=== PATIENT | female | born 1990 | race Two or more races ===

== ENCOUNTER 2025-07-23 16:14 | Inpatient (IN) | payer MEDICAID, OTHER ==
[~2025-07-23] VITALS: Ht 154.9 cm; Wt 65.8 kg
[2025-07-23 16:59] LABS: Nucleated Red Blood Cells % 0.0 %
[2025-07-23 17:01] LABS: Hematocrit 23.9 % (36.0-46.0); Mean Corpuscular Hemoglobin 15.2 pg (28.0-32.0); Mean Corpuscular Volume 53.0 fL (80.0-100.0)
--- NOTE | 2025-07-23 17:07 | ED.PDOC ---
History of Present Illness HPI Comments 35-year-old female presents here with a acute anemia. She states she went last week for routine checkup and had labs done. She received a phone call today stating that her hemoglobin is 6.4. Patient states that for the last several weeks but she has been feeling very short of breath tired and dizziness. She states she no longer is heavy bleeding but prior to this she was having significant menstrual cycles. She states it stopped being heavy spontaneously. She is not bleeding from any site. Not on any blood thinners. She states several years ago she became anemic after childbirth and received a transfusion at this time and trend tolerated well. Chief Complaint: Abnormal LAB's Time Seen by MD: 16:22 Reviewed Notes: Nurses Notes, Medications, Allergies Allergies: Coded Allergies: NO KNOWN ALLERGIES (Unverified , 07/23/25) Information Source: Patient Mode of Arrival: Ambulatory Severity: Moderate Timing: Days (4) Duration: Since onset Past Medical History Past Medical History (Other): Denies Surgical History (Other): None Social History Smoker: Non-Smoker Alcohol: Denies ETOH Use Drugs: Denies Drug Use Constitutional: denies: chills, diaphoresis, fatigue, fever, malaise, sweats, weakness, others EENTM: denies: blurred vision, double vision, ear bleeding, ear discharge, ear drainage, ear pain, ear ringing, eye pain, eye redness, hearing loss, mouth pain, mouth swelling, nasal discharge, nose bleeding, nose congestion, nose pain, photophobia, tearing, throat pain, throat swelling, voice changes, others Respiratory: denies: cough, hemoptysis, orthopnea, SOB at rest, shortness of breath, SOB with excertion, stridor, wheezing, others Cardiovascular: denies: chest pain, dizzy spells, diaphoresis, Dyspnea on exertion, edema, irregular heart beat, left arm pain, lightheadedness, palpitations, PND, syncope, others Gastrointestinal: denies: abdomen distended, abdominal pain, blood streaked bowels, constipated, diarrhea, dysphagia, difficulty swallowing, hematemesis, melena, nausea, poor appetite, poor fluid intake, rectal bleeding, rectal pain, vomiting, others Genitourinary: denies: abnormal vagina bleeding, burning, dyspareunia, dysuria, flank pain, frequency, hematuria, incontinence, pain, , vagina discharge, urgency, others Neurological: reports: dizziness; denies: fainting, headache, left sided numbness, left sided weakness, numbness, paresthesia, pre-existing deficit, right sided numbness, right sided weakness, seizure, speech problems, tingling, tremors, weakness, others Musculoskeletal: denies: back pain, gout, joint pain, joint swelling, muscle pain, muscle stiffness, neck pain, others Integumetry: denies: bruises, change in color, change in hair/nails, dryness, laceration, lesions, lumps, rash, wounds, others Allergic/Immunocompromised: denies: Difficulty Healing, Frequent Infections, Hives, Itching, others Hematologic/Lymphatic: denies: anemia, blood clots, easy bleeding, easy bruising, swollen glands, others Endocrine: denies: excessive hunger, excessive sweating, excessive thirst, excessive urination, flushing, intolerance to cold, intolerance to heat, unexplained weight gain, unexplained weight loss, others Psychiatric: denies: anxiety, bipolar disorder, depression, hopeless, panic disorder, schizophrenia, sleepless, suicidal, others All Other Systems: Reviewed and Negative Physical Exam General Appearance: Mild Distress, Normal HEENT: Normal ENT Inspection, Pharynx Normal, TMs Normal Neck: Full Range of Motion, Non-Tender, Normal, Normal Inspection Respiratory: Chest Non-Tender, Lungs Clear, No Accessory Muscle Use, No Respiratory Distress, Normal Breath Sounds Cardiovascular: No Edema, No JVD, No Murmur, No Gallop, Normal Peripheral Pulses, Regular Rate/Rhythm Breast Exam: Deferred Gastrointestinal: No Organomegaly, Non Tender, No Pulsatile Mass, Normal Bowel Sounds, Soft Genitalia: Deferred Pelvic: Deferred Rectal: Deferred Extremities: No calf tenderness, Normal capillary refill, Normal inspection, No rmal range of motion, Non-tender, No pedal edema Musculoskeletal : Apperance: Normal Neurologic: Alert, lock and dam repairer II-XII nml as Tested, No Motor Deficits, Normal Affect, Normal Mood, No Sensory Deficits Cerebellar Function: Normal Reflexes: Normal Skin: Dry, Pallor, Warm Lymphatic: No Adenopathy Was a procedure done? Was a procedure done?: No Differential Dx Considerations may include: Acute hemorrhage acute anemia, shortness of breath secondary to this X-Ray, Labs, Meds, VS Vital Signs Date Time Temp Pulse Resp B/P (MAP) Pulse Ox O2 Delivery O2 Flow Rate FiO2 07/23/25 16:16 98.1 81 16 141/93 100 98.1 Lab Test 07/23/25 16:37 Range/Units White Blood Count 8.0 4.4-10.8 10^3/uL Red Blood Count 4.51 4.0-5.20 10^6/uL Hemoglobin 6.8 *L 12.2-16.2 g/dL Hematocrit 23.9 L 36.0-46.0 % Mean Corpuscular Volume 53.0 L 80.0-100.0 fL Mean Corpuscular Hemoglobin 15.2 L 28.0-32.0 pg Mean Corpuscular Hemoglobin Concent 28.6 L 32.0-36.0 g/dL Red Cell Distribution Width 19.1 H 11.8-14.3 % Platelet Count 653 H 140-450 10^3/uL Mean Platelet Volume 8.3 6.9-10.8 fL Neutrophils (%) (Auto) 63.3 37.0-80.0 % Lymphocytes (%) (Auto) 29.5 10.0-50.0 % Monocytes (%) (Auto) 5.7 0.0-12.0 % Eosinophils (%) (Auto) 0.5 0.0-7.0 % Basophils (%) (Auto) 1.0 0.0-2.0 % Neutrophils # (Auto) 5.1 1.6-8.6 10 ^3/uL Lymphocytes # (Auto) 2.4 0.4-5.4 10 ^3/uL Monocytes # (Auto) 0.5 0-1.3 10 ^3/uL Eosinophils # (Auto) 0 0-0.8 10 ^3/uL Basophils # (Auto) 0.1 0-0.2 10 ^3/uL Nucleated Red Blood Cells 0.0 % Sodium Level 140 136-145 mmol/L Potassium Level 3.5 3.5-5.1 mmol/L Chloride Level 106 98-107 mmol/L Carbon Dioxide Level 24 20-31 mmol/L Anion Gap 10 5-15 Blood Urea Nitrogen 14 9-23 mg/dL Creatinine 0.63 0.550-1.02 mg/dL Glomerular Filtration Rate Calc 117 >90 mL/min BUN/Creatinine Ratio 22.2 H 10.0-20.0 Serum Glucose 102 74-106 mg/dL Calcium Level 9.4 8.7-10.4 mg/dL 35-year-old female presents here with feeling tired weak and dizzy for the last several weeks. She was found to be hemoglobin is 6.8 here in the ER. She is currently on iron tablets however continues to feel this way and feels tired will take care of her children. At this time she has agreed to transfusion. She has agreed to admission. I have written for 1 unit PRBC transfusion. CBC also demonstrates thrombocytosis of 653. BMP unremarkable. At this time hospitalist team has been contacted for admission. Time of 1ST Reevaluation: 17:16 Reevaluation 1ST: Unchanged Patient Education/Counseling: Diagnosis, Treatment, Prognosis Family Education/Counseling: No Family Present SEPSIS Sepsis Screen Date sepsis recognized/suspect: Jul 23, 2025 Time Sepsis recognized/suspect: 1615 Recent Procedure: No On Antibiotic Therapy: No Respiratory Rate >20: No Heart Rate >90: No Temp<36 C (96.8 F) or >38.3 C: No SBP <90 or MAP <65 mmHG: No New Acute Mental Status Change: No Is the patient on CPAP, BIPAP,: No Physician Orders Type And Screen (07/23/25 16:23) Test, Urine (07/23/25 16:23) Vital Signs Date Time Temp Pulse Resp B/P (MAP) Pulse Ox O2 Delivery O2 Flow Rate FiO2 07/23/25 16:16 98.1 81 16 141/93 100 98.1 Laboratory Tests Test 07/23/25 16:37 White Blood Count 8.0 10^3/uL (4.4-10.8) Departure 1 Departure Time of Disposition: 17:39 Impression: Primary Impression: Severe anemia Additional Impression: Thrombocytosis Disposition: 09 ADMITTED INPATIENT Condition: Guarded Critical Care Note Critical Care Time?: Yes (35 min-critical care time only) Stability Stability form required: No Heart Score Heart Score: Heart Score Response (Comments) Value History N/A 0 EKG N/A 0 Age N/A 0 Risk Factors N/A 0 Troponin N/A 0 Total 0 I personally scribed for FREDDIE DEWITT MD ([email or web address]) on 07/23/25 at 17:07. Electronically submitted by Dahlia VenturaFORMERLY [facility] I personally scribed for FREDDIE DEWITT MD ([email or web address]) on 07/23/25 at 17:16. Electronically submitted by Dahlia Sánchez ([facility]). FREDDIE DEWITT MD Jul 23, 2025 17:07
[2025-07-23 17:08] LABS: Hemoglobin 6.8 g/dL (12.2-16.2)
[2025-07-23 17:11] LABS: Chloride 106 mmol/L (98-107); Sodium 140 mmol/L (136-145)
[2025-07-23 17:12] LABS: Anion Gap 10 (5-15); Calcium 9.4 mg/dL (8.7-10.4); Carbon Dioxide 24 mmol/L (20-31)
[2025-07-23 17:17] LABS: BUN/Creatinine Ratio 22.2 (10.0-20.0); Blood Urea Nitrogen 14 mg/dL (9-23); Glucose 102 mg/dL (74-106)
[2025-07-23 17:18] LABS: Potassium 3.5 mmol/L (3.5-5.1)
[2025-07-23 18:00] VITALS: PULSE 73; RESP 14; O2SAT 99
[2025-07-23 19:40] VITALS: O2SAT 99
[2025-07-23] MEDS ORDERED: DOCUSATE SOD 100 MG CAP PO PRN (21:45)
[2025-07-23] MEDS ORDERED: ACETAMINOPHEN 325 MG TAB PO PRN (21:45)
[2025-07-23] MEDS ORDERED: HYDROcodone-ACET 5/325MG TAB PO PRN (21:45)
[2025-07-23] MEDS ORDERED: ONDANSETRON HCL 4 MG/2 ML VIAL IV PRN (21:45)
--- NOTE | 2025-07-23 21:53 | DVHHP2 ---
History of Present Illness Reason for Visit: Severe anemia History of Present Illness The patient is a 35-year-old female who denies past medical history presented to [facility] ED with acute anemia and dizziness. Patient reports that she went for a routine checkup and had lab drawn last week. Patient receive a phone call today stating that her hemoglobin is 6.4 and she is required to go to the emergency department for further evaluation and possible blood transfusion. Patient states that she experienced similar symptoms 5 years ago after having a baby and receive blood transfusion without complication. She reports having significant heavy menstrual cycles prior to this, but not bleeding from any site at this time. Patient was seen and evaluated in the ED, laboratory data shows WBC 8.0, hemoglobin 6.8, hematocrit 23.9, platelets 653, sodium 140, potassium 3.5, BUN 14, creatinine 0.63, GFR 117, glucose 102, calcium 9.4, blood pressure 120/70, heart rate 72, temperature 98.6 F, O2 saturation 99% on room air. Please see medication orders section in the computer. On my assessment, patient denied chest pain, no dizziness at this time, diaphoresis, shortness of breath, no diarrhea, nausea, vomiting, fever, no chills. Patient was admitted for further evaluation and medical management. Past Medical History Denies past medical history Past Surgical History Denies all surgeries Family History Reviewed, noncontributory to the management of this case. Past Social History The patient lives at home, denies smoking, alcohol or illicit drugs abuse. Review of Systems Constitutional: Yes: Weakness; No: Fever, Chills, Sweats, Malaise, Other Eyes: No: Pain, Vision change, Conjunctivae inflammation, Eyelid inflammation, Other, Redness ENT: No: Ear pain, Ear discharge, Nose pain, Nose discharge, Nose congestion, Mouth pain, Mouth swelling, Throat pain, Throat swelling, Other Respiratory: No: Cough, Dry, Shortness of breath, SOB with excertion, Wheezing, Hemoptysis, Pleuritic Pain, Sputum, Wheezing, Other Cardiovascular: No: Chest Pain, Palpitations, Orthopnea, Paroxysmal Noc. Dyspnea, Edema, Lt Headedness, Other Gastrointestinal: No: Nausea, Vomiting, Abdominal Pain, Diarrhea, Constipation, Melena, Hematochezia, Other Genitourinary: No Dysuria, No Frequency, No Incontinence, No Hematuria, No Retention, No Other Musculoskeletal: No: other, neck pain, shoulder pain, arm pain, back pain, hand pain, leg pain, foot pain Skin: Jaundice; No: Rash, Lesions, Bruising, Other Neurological: Other (Dizziness); No: Weakness, Numbness, Incoordination, Change in speech, Confusion, Seizures Allergies: Coded Allergies: NO KNOWN ALLERGIES (Unverified , 07/23/25) Medications Current Medications Medications Dose Ordered Sig/Rhiannon Route Start Time Stop Time Status Last Admin Dose Admin Sodium Chloride 10 ml Q8HR IV 07/23/25 22:00 UNV Acetaminophen/ Hydrocodone Bitart 1 tab Q4HP PRN PO 07/23/25 21:45 UNV Ondansetron HCl 4 mg Q4HP PRN IV 07/23/25 21:45 UNV Docusate Sodium 100 mg BIDPRN PRN PO 07/23/25 21:45 UNV Enoxaparin Sodium 40 mg DAILY SC 07/24/25 10:00 UNV Acetaminophen 650 mg Q6HP PRN PO 07/23/25 21:45 UNV Exam Vital Signs Vital Signs Date Time Temp Pulse Resp B/P (MAP) Pulse Ox O2 Delivery O2 Flow Rate FiO2 07/23/25 18:00 98.5 73 14 120/70 (87) 99 98.5 07/23/25 18:00 Room Air* 0 21 General Appearance: Alert, Oriented X3, Cooperative, No acute distress HEENT: Atraumatic, PERRLA, EOMI, Mucous membr. moist/pink Respiratory: Clear to auscultation, Normal air movement Cardiovascular: Regular rate, Normal S1, Normal S2, No murmurs Abdominal: Normal bowel sounds, Soft, No tenderness, No hepatospenomegaly, No masses Extremities: No clubbing, No cyanosis, No edema, Normal pulses, No tenderness/swelling Skin: No rashes, No significant lesion Neuro: Normal speech, Normal tone, Sensation intact, Cranial nerves 3-12 NL, Reflexes 2+, Other (Generalized weakness) Psych/Mental Status: Mental status NL, Mood NL Labs/Xrays Labs Test 07/23/25 19:00 07/23/25 16:37 Range/Units Urine Test Negative Negative White Blood Count 8.0 4.4-10.8 10^3/uL Red Blood Count 4.51 4.0-5.20 10^6/uL Hemoglobin 6.8 *L 12.2-16.2 g/dL Hematocrit 23.9 L 36.0-46.0 % Mean Corpuscular Volume 53.0 L 80.0-100.0 fL Mean Corpuscular Hemoglobin 15.2 L 28.0-32.0 pg Mean Corpuscular Hemoglobin Concent 28.6 L 32.0-36.0 g/dL Red Cell Distribution Width 19.1 H 11.8-14.3 % Platelet Count 653 H 140-450 10^3/uL Mean Platelet Volume 8.3 6.9-10.8 fL Neutrophils (%) (Auto) 63.3 37.0-80.0 % Lymphocytes (%) (Auto) 29.5 10.0-50.0 % Monocytes (%) (Auto) 5.7 0.0-12.0 % Eosinophils (%) (Auto) 0.5 0.0-7.0 % Basophils (%) (Auto) 1.0 0.0-2.0 % Neutrophils # (Auto) 5.1 1.6-8.6 10 ^3/uL Lymphocytes # (Auto) 2.4 0.4-5.4 10 ^3/uL Monocytes # (Auto) 0.5 0-1.3 10 ^3/uL Eosinophils # (Auto) 0 0-0.8 10 ^3/uL Basophils # (Auto) 0.1 0-0.2 10 ^3/uL Nucleated Red Blood Cells 0.0 % Sodium Level 140 136-145 mmol/L Potassium Level 3.5 3.5-5.1 mmol/L Chloride Level 106 98-107 mmol/L Carbon Dioxide Level 24 20-31 mmol/L Anion Gap 10 5-15 Blood Urea Nitrogen 14 9-23 mg/dL Creatinine 0.63 0.550-1.02 mg/dL Glomerular Filtration Rate Calc 117 >90 mL/min BUN/Creatinine Ratio 22.2 H 10.0-20.0 Serum Glucose 102 74-106 mg/dL Calcium Level 9.4 8.7-10.4 mg/dL SEPSIS Sepsis Screen Date sepsis recognized/suspect: Jul 23, 2025 Time Sepsis recognized/suspect: 1800 Recent Procedure: No On Antibiotic Therapy: No Respiratory Rate >20: No Heart Rate >90: No Temp<36 C (96.8 F) or >38.3 C: No SBP <90 or MAP <65 mmHG: No New Acute Mental Status Change: No Is the patient on CPAP, BIPAP,: No Physician Orders Type And Screen (07/23/25 16:23) Obtain Consent For: (07/23/25 17:38) Vital Signs .PER UNIT PROTOCOL (07/23/25 17:38) Administer Blood Products UD (07/23/25 17:38) Obtain Consent For Anesthesia (07/23/25 17:38) Antibody Identification (07/23/25 16:37) Antigen Identification (07/23/25 16:37) Allergies (07/23/25 21:37) Code Status (07/23/25 21:37) Sodium Chloride Lock (Saline Lock Ns) (07/23/25 22:00) Oxygen Per Hour (07/23/25 21:37) Hydrocodone-Acet 5/325mg Tab ([place] 5/32 (07/23/25 21:45) Ondansetron Hcl (Zofran) (07/23/25 21:45) Docusate Sodium Capsule (Colace Capsule) (07/23/25 21:45) Enoxaparin Sodium (Lovenox) (07/24/25 10:00) Fall Risk Precautions In Place QSHIFT (07/23/25 21:37) Complete Blood Count (07/24/25 04:00) Comprehensive Metabolic Panel (07/24/25 04:00) Cardiac Diet-2gna,Lofat,Lochol (07/24/25 Breakfast) Condition: Serious (07/23/25 21:37) Acetaminophen Tablet (Tylenol Tablet) (07/23/25 21:45) Maintain Bed Rest (07/23/25 21:37) Sequential Compression Device (07/23/25 ) Admit (07/23/25 21:52) Nitroglycerin Sublingual (Ntrostat Subli (07/23/25 22:00) Morphine Sulfate Injection (07/23/25 22:00) Stat Ekg For Chest Pain (07/23/25 21:52) Notify Md Of Changes From Base (07/23/25 21:52) Contract Runner For 24 Hours (07/23/25 21:52) Emergency Dysrhythmia Protocol (07/23/25 21:52) Rhythm Strips Once Every Shift (07/23/25 21:52) Oxygen By Nasal Cannula (07/23/25 21:52) Vital Signs Date Time Temp Pulse Resp B/P (MAP) Pulse Ox O2 Delivery O2 Flow Rate FiO2 07/23/25 18:00 98.5 73 14 120/70 (87) 99 98.5 07/23/25 18:00 73 14 99 Room Air* 0 21 07/23/25 16:16 98.1 81 16 141/93 100 98.1 Laboratory Tests Test 07/23/25 16:37 White Blood Count 8.0 10^3/uL (4.4-10.8) Assessment/Plan Assessment/Plan Severe anemia Thrombocytosis Generalized weakness Plan 1. Admit to telemetry unit 2. Breathing treatment 3. Pain control management 4. Management of fluids and electrolytes 5. Consultation for hospitalist 6. Diagnostic tests chest x-ray 7. DVT prophylaxis patch on SCDs 8. Repeat labs CBC, CMP in a.m. 9. Continue with current medical management 10. Treatment plan discussed with patient and RN. Patient verbalized understanding. Plan discussed with: Patient, Other (RN) My Orders Orders - CLAIRE FLOOD DNP Procedure Category Date Status Time Allergies LUIS 07/23/25 In Process 21:37 Code Status CODE 07/23/25 Transmitted 21:37 Sodium Chloride Lock PHA 07/23/25 Logged (Saline Lock Ns) 22:00 Oxygen Per Hour RT 07/23/25 Transmitted 21:37 Hydrocodone-Acet PHA 07/23/25 Logged 5/325mg Tab ([place] 21:45 Ondansetron Hcl PHA 07/23/25 Logged (Zofran) 21:45 Docusate Sodium PHA 07/23/25 Logged Capsule (Colace 21:45 Enoxaparin Sodium PHA 07/24/25 Logged (Lovenox) 10:00 Fall Risk Precautions LUIS 07/23/[address] 21:37 Complete Blood Count LAB 07/24/25 Verified 04:00 Comprehensive LAB 07/24/25 Verified Metabolic Panel 04:00 Cardiac DIET 07/24/25 Transmitted Diet-2gna,Lofat,Lochol Breakfast Condition: Serious LUIS 07/23/25 In Process 21:37 Acetaminophen Tablet PHA 07/23/25 Logged (Tylenol Tablet) 21:45 Maintain Bed Rest LUIS 07/23/25 In Process 21:37 Sequential [facility] 07/23/25 In Process Compression Device Admit ADMIT 07/23/25 Verified 21:52 Nitroglycerin [facility] 07/23/25 Verified Sublingual (Ntrostat 22:00 Morphine Sulfate [facility] 07/23/25 Verified Injection 22:00 Stat Ekg For Chest [facility] 07/23/25 Verified Pain 21:52 Notify Md Of Changes [facility] 07/23/25 Verified From Base 21:52 Contract Runner For [facility] 07/23/25 Verified 24 Hours 21:52 Emergency Dysrhythmia [facility] 07/23/25 Verified Protocol 21:52 Rhythm Strips Once [facility] 07/23/25 Verified Every Shift 21:52 Oxygen By Nasal 07/23/25 Verified Cannula 21:52 Problem List: (1) Severe anemia (2) Thrombocytosis (3) Generalized weakness Date of Service: Jul 23, 2025 Billing Provider: CLAIRE FLOOD DNP Common Visit Codes: [id number] INP/OBS CARE (HIGH) CLAIRE FLOOD DNP Jul 23, 2025 21:53
[2025-07-23] MEDS ORDERED: MORPHINE SULFATE INJ 2 MG/ml SYRG IV PRN (22:00)
[2025-07-23] MEDS ORDERED: NITROGLYCERIN 0.4 MG SL TAB SL PRN (22:00)
[2025-07-23] MEDS: SODIUM CHLOR 0.9% PF (SALINE LOCK) 10ML VIAL/SYR IV SCH (22:08)
[2025-07-23 23:35] VITALS: BP 113/62; PULSE 70; RESP 20; TEMP 98.5
[2025-07-23 23:55] VITALS: BP 120/68; PULSE 67; RESP 21; TEMP 98.7
[2025-07-24] VITALS (8 sets, daily range): BP systolic 109–128; BP diastolic 61–80; PULSE 66–79; RESP 16–20; TEMP 98.3–98.7; O2SAT 98–100
[2025-07-24 03:32] LABS: Hemoglobin 7.5 g/dL (12.2-16.2)
[2025-07-24 03:35] LABS: Hematocrit 25.3 % (36.0-46.0); Mean Corpuscular Hemoglobin 17.3 pg (28.0-32.0); Mean Corpuscular Volume 58.1 fL (80.0-100.0); Nucleated Red Blood Cells % 0.2 %
[2025-07-24 03:44] LABS: Albumin 3.9 g/dL (3.2-4.8); Alkaline Phosphatase 68 U/L (46-116); Anion Gap 10 (5-15); BUN/Creatinine Ratio 22.2 (10.0-20.0); Bilirubin, Total 0.9 mg/dL (0.2-1.0); Blood Urea Nitrogen 12 mg/dL (9-23); Carbon Dioxide 24 mmol/L (20-31); Glucose 100 mg/dL (74-106); Potassium 3.8 mmol/L (3.5-5.1); Sodium 142 mmol/L (136-145); Total Protein 6.6 g/dL (5.7-8.2)
[2025-07-24 03:45] LABS: Alanine Aminotransferase < 9 U/L (7-40); Calcium 8.7 mg/dL (8.7-10.4); Chloride 108 mmol/L (98-107)
[2025-07-24] MEDS: ENOXAPARIN SOD 40 MG/0.4 ML SYRINGE SC SCH (10:00)
[2025-07-24] MEDS ORDERED: FERR1TAB8 PO (11:21)
--- NOTE | 2025-07-24 12:45 | DVHPN2 ---
Reviewed: H&P Changes from previous H/P or p: No Changes General: Per HPI Eyes: No Pain, No Vision change, No Conjunctivae inflammation, No Eyelid inflammation, No Other, No Redness ENT: No Ear pain, No Ear discharge, No Nose pain, No Nose discharge, No Nose congestion, No Mouth pain, No Mouth swelling, No Throat pain, No Throat swelling, No Other Cardiovascular: No Chest Pain, No Palpitations, No Orthopnea, No Paroxysmal Noc. Dyspnea, No Edema, No Lt Headedness, No Other Respiratory: No Cough, No Dry, No Shortness of breath, No SOB with excertion, No Wheezing, No Hemoptysis, No Pleuritic Pain, No Sputum, No Other Gastrointestinal: No Nausea, No Vomiting, No Abdominal Pain, No Diarrhea, No Constipation, No Melena, No Hematochezia, No Other Genitourinary: No Dysuria, No Frequency, No Incontinence, No Hematuria, No Retention, No Other Musculoskeletal: No other, No neck pain, No shoulder pain, No arm pain, No back pain, No hand pain, No leg pain, No foot pain Skin: No Rash, No Lesions; Jaundice; No Bruising, No Other Objective Vitals Vital Signs Date Time Temp Pulse Resp B/P (MAP) Pulse Ox O2 Delivery O2 Flow Rate FiO2 07/24/25 09:00 98.3 79 18 128/80 (96) 100 98.3 07/23/25 19:40 Room Air* 0 21 Intake/Output Intake and Output 07/24/25 07:00 Intake Total 600 ml Output Total 0 ml Balance 600 ml Intake Blood Product 600 ml Output Urine Total 0 ml Exam GEN: Healthy appearing, well-developed, NAD. HEENT: NC/AT; MMM. Conjunctival pallor CV: RRR, no m/r/g. LUNGS: CTAB, no w/r/c. ABD: Soft, NT/ND, NBS, no masses or organomegaly. EXT: skin Warm, well perfused. no rashes. No clubbing, cyanosis, or edema. NEURO: Ambulating with no limitations. No focal deficits. Medications Current Medications Medications Dose Ordered Sig/Rhiannon Route Start Time Stop Time Status Last Admin Dose Admin Sodium Chloride 10 ml Q8HR IV 07/23/25 22:00 07/24/25 05:41 10 ML Acetaminophen/ Hydrocodone Bitart 1 tab Q4HP PRN PO 07/23/25 21:45 Ondansetron HCl 4 mg Q4HP PRN IV 07/23/25 21:45 Docusate Sodium 100 mg BIDPRN PRN PO 07/23/25 21:45 Enoxaparin Sodium 40 mg DAILY SC 07/24/25 10:00 Acetaminophen 650 mg Q6HP PRN PO 07/23/25 21:45 Nitroglycerin 0.4 mg Q5MINP PRN SL 07/23/25 22:00 Morphine Sulfate 2 mg Q30M PRN IV 07/23/25 22:00 Laboratory Results Laboratory Tests 07/24/25 03:02 Chemistry Test 07/23/25 16:37 07/24/25 03:02 Calcium Level 9.4 mg/dL (8.7-10.4) 8.7 mg/dL (8.7-10.4) Albumin 3.9 g/dL (3.2-4.8) Total Protein 6.6 g/dL (5.7-8.2) LFT Test 07/24/25 03:02 Alanine Aminotransferase (ALT) < 9 U/L (7-40) Alkaline Phosphatase 68 U/L (46-116) Aspartate Amino Transferase (AST) 15 U/L (13-40) Total Bilirubin 0.9 mg/dL (0.2-1.0) Urinalysis Test 07/23/25 19:00 Urine Test Negative (Negative) Labs and/or images reviewed: Labs reviewed by me, Image(s) reviewed by me Assessment/Plan Assessment/Plan 35-year-old female who denies past medical history presented to [facility] ED with acute anemia and dizziness. Patient reports that she went for a routine checkup and had lab drawn last week. Patient receive a phone call today stating that her hemoglobin is 6.4 and she is required to go to the emergency department for further evaluation and possible blood transfusion. Patient states that she experienced similar symptoms 5 years ago after having a baby and receive blood transfusion without complication. She reports having significant heavy menstrual cycles prior to this, but not bleeding from any site at this time. 07/24: Patient presenting with severe dizziness, recently had until cycle which was heavier than normal, patient does suffer with history of menorrhagia. Patient had routine blood draw and was told her blood levels were low prior to presentation. On initial eval patient is anemic hemoglobin 6.8, patient had conjunctival pallor looks pale. 1 unit blood is given in ER. Patient is O positive. We will get pelvic ultrasound and consult Gynecology. Plan discussed with: Patient My Orders Orders - GALLO BURNETTE MD Procedure Category Date Status Time Pelvic US 07/24/25 Transmitted 12:41 * Spool Salvager Consultation CONS 07/24/25 Transmitted 12:41 Stool Occult Blood LAB 07/24/25 Verified 12:42 Date of Service: Jul 24, 2025 Billing Provider: GALLO BURNETTE MD Common Visit Codes: [id number] INP/OBS CARE(HIGH) GALLO BURNETTE MD Jul 24, 2025 12:45
--- NOTE | 2025-07-24 15:03 | DVH ---
INDICATION: Menorrhagia TECHNIQUE: Multiple real-time grayscale transabdominal transvaginal sonographic images along with color and duplex Doppler of the uterus and ovaries were obtained. COMPARISON: None FINDINGS: The uterus measures 7.79 x 3.35 x 4.81 cm. Uterine volume is 65.71 mL The endometrial stripe measures 0.48 cm. There is a 0.27 cm echogenic focus in the endometrial canal. The right ovary measures 2.92 by 1.87 x 2.32 cm. Right ovary volume is 6.64 mL The left ovary measures 2.89 x 2.07 x 2.35 cm. Volume of the left ovary is 7.37 mL. Subsequent color and duplex Doppler interrogation of the ovaries demonstrated symmetric vascular flow to both ovaries, though this does not exclude the possibility of torsion due to the dual blood supply. IMPRESSION: 1. Grossly unremarkable pelvic ultrasound. 2. Multiple follicles in the ovaries. 3. Small echogenic focus in the endometrial canal may represent calcification.
[2025-07-24] MEDS: FERROUS SULFATE 325mg EC TAB PO SCH (15:07)
[2025-07-24] MEDS: FOLIC ACID 1 MG TAB PO SCH (15:08)
[2025-07-25 01:00] VITALS: BP 109/68; PULSE 74; RESP 18; TEMP 98.1; O2SAT 98
[2025-07-25 05:00] VITALS: BP 114/70; PULSE 61; RESP 16; TEMP 97.8; O2SAT 98
[2025-07-25 06:29] LABS: Hemoglobin 8.2 g/dL (12.2-16.2); Nucleated Red Blood Cells % 0.1 %
[2025-07-25 06:31] LABS: Hematocrit 27.2 % (36.0-46.0); Mean Corpuscular Hemoglobin 17.3 pg (28.0-32.0); Mean Corpuscular Volume 57.2 fL (80.0-100.0)
--- NOTE | 2025-07-25 07:58 | DVHINCON2 ---
Date of service: Jul 25, 2025 Referring Physician HOSPITALIST Reason for Consultation MENORRHAGIA AND ANEMIA History of Present Illness PT IS female admitted for severe anemia and menorrhagia.pt states her last pap was five yrs ago. her lmp was 11-3 she states she doesnt bleed heavy .pelvic sono is essentially normal.she has no desire for fertility Past Medical History none Past Surgical History none Family History na Social History 3 Patient Family History: Patient reports no known family medical history. Allergies: Coded Allergies: NO KNOWN ALLERGIES (Unverified , 07/23/25) Home Meds Reported Medications Ferrous Sulfate (Gnp Iron) 325 Mg Tab, 1 TAB PO TID 07/24/25 Current Medications Current Medications Medications (Trade) Dose Ordered Sig/Rhiannon Route PRN Reason Start Time Stop Time Status Last Admin Enoxaparin Sodium (Lovenox) 40 mg DAILY SC 07/24/25 10:00 Folic Acid 1 mg DAILY PO 07/24/25 14:15 07/24/25 15:08 Ferrous Sulfate 325 mg EOD PO 07/24/25 14:15 07/24/25 15:07 Review of Systems Constitutional: no fever, chill, weight loss HEENT: no eye pain, no hearing loss, no oral lesion, no scleral icterus Heart: no chest pain, no chest pressure Lung: no cough, no dyspnea with exertion Abdomen: no nause,vomiting or diarrhea : no pain with urination, normal appearing urinepos for bleeding Musculoskeletal: no joint pain, no muscle pain Neurological: no seizure, no loss of sensation, no weakness in extremities Pysch: no depression, no anxiety Derm: no rash, no jaundice Vital Signs Vital Signs Date Time Temp Pulse Resp B/P (MAP) Pulse Ox O2 Delivery O2 Flow Rate FiO2 07/25/25 05:00 97.8 61 16 114/70 (85) 98 97.8 07/24/25 20:00 Room Air* 0 21 Physical Exam SKIN: [pale] HEENT: [pale conjuctivae] NECK: [nl] CARDIAC: [rrr] PULMONARY: [cta] ABDOMEN: [soft,nt ] breasts -symmetrical nomasses pelvic-ext gent nl,no bleeding noted,cx nl ,uterus nl size ext-no cce Labs/Diagnostic Data Labs Test 07/25/25 05:54 07/24/25 17:30 07/24/25 03:02 07/23/25 19:00 Range/Units White Blood Count 7.5 4.4-10.8 10^3/uL Red Blood Count 4.76 4.0-5.20 10^6/uL Hemoglobin 8.2 L 12.2-16.2 g/dL Hematocrit 27.2 L 36.0-46.0 % Mean Corpuscular Volume 57.2 L 80.0-100.0 fL Mean Corpuscular Hemoglobin 17.3 L 28.0-32.0 pg Mean Corpuscular Hemoglobin Concent 30.2 L 32.0-36.0 g/dL Red Cell Distribution Width 21.0 H 11.8-14.3 % Platelet Count 540 H 140-450 10^3/uL Mean Platelet Volume 8.5 6.9-10.8 fL Neutrophils (%) (Auto) 62.7 37.0-80.0 % Lymphocytes (%) (Auto) 27.4 10.0-50.0 % Monocytes (%) (Auto) 7.9 0.0-12.0 % Eosinophils (%) (Auto) 1.1 0.0-7.0 % Basophils (%) (Auto) 0.9 0.0-2.0 % Neutrophils # (Auto) 4.7 1.6-8.6 10 ^3/uL Lymphocytes # (Auto) 2.1 0.4-5.4 10 ^3/uL Monocytes # (Auto) 0.6 0-1.3 10 ^3/uL Eosinophils # (Auto) 0.1 0-0.8 10 ^3/uL Basophils # (Auto) 0.1 0-0.2 10 ^3/uL Nucleated Red Blood Cells 0.1 % Stool Occult Blood Negative Negative Stool Occult Blood Sample #3 Negative Sodium Level 142 136-145 mmol/L Potassium Level 3.8 3.5-5.1 mmol/L Chloride Level 108 H 98-107 mmol/L Carbon Dioxide Level 24 20-31 mmol/L Anion Gap 10 5-15 Blood Urea Nitrogen 12 9-23 mg/dL Creatinine 0.54 L 0.550-1.02 mg/dL Glomerular Filtration Rate Calc 122 >90 mL/min BUN/Creatinine Ratio 22.2 H 10.0-20.0 Serum Glucose 100 74-106 mg/dL Calcium Level 8.7 8.7-10.4 mg/dL Total Bilirubin 0.9 0.2-1.0 mg/dL Aspartate Amino Transferase (AST) 15 13-40 U/L Alanine Aminotransferase (ALT) < 9 7-40 U/L Alkaline Phosphatase 68 46-116 U/L Total Protein 6.6 5.7-8.2 g/dL Albumin 3.9 3.2-4.8 g/dL Urine Test Negative Negative Primary Diagnosis menorrhagia with anemia Plan pt is advised to see me after dc ,she will need pap smear,endometrial biopsy and will benefit from endometrial ablation.recommend dc on iron supplementation. will sign off thank you very much for this consultation Plan discussed with: Patient Visit Coding OBGYN Date of Service: Jul 25, 2025 Billing Provider: TOREY AGUIRRE DO OTOLOGIST Common Visit Codes: [id number] INP/OBS CARE (HIGH) OTOLOGIST Consultation Codes: 17909-Z/U INPATIENT CONSULT (HIGH) TOREY AGUIRRE DO Jul 25, 2025 07:58
[2025-07-25 08:00] VITALS: PULSE 69
[2025-07-25 08:10] VITALS: PULSE 68; RESP 18; O2SAT 100
[2025-07-25 08:51] LABS: Anisocytosis Slight
[2025-07-25 09:00] VITALS: BP 111/74; PULSE 68; RESP 18; TEMP 97.4; O2SAT 100
[2025-07-25 13:00] VITALS: BP 121/82; PULSE 82; RESP 20; TEMP 97.9; O2SAT 100
--- NOTE | 2025-07-25 15:16 | DVHDS2 ---
Discharge Summary Date of Admission Jul 23, 2025 at 21:52 Date of Discharge: Jul 25, 2025 Labs/Diagnostic Data: Laboratory Results Test 07/25/25 05:54 07/24/25 17:30 07/24/25 03:02 07/23/25 19:00 White Blood Count 7.5 10^3/uL (4.4-10.8) Red Blood Count 4.76 10^6/uL (4.0-5.20) Hemoglobin 8.2 g/dL (12.2-16.2) Hematocrit 27.2 % (36.0-46.0) Mean Corpuscular Volume 57.2 fL (80.0-100.0) Mean Corpuscular Hemoglobin 17.3 pg (28.0-32.0) Mean Corpuscular Hemoglobin Concent 30.2 g/dL (32.0-36.0) Red Cell Distribution Width 21.0 % (11.8-14.3) Platelet Count 540 10^3/uL (140-450) Mean Platelet Volume 8.5 fL (6.9-10.8) Neutrophils (%) (Auto) 62.7 % (37.0-80.0) Lymphocytes (%) (Auto) 27.4 % (10.0-50.0) Monocytes (%) (Auto) 7.9 % (0.0-12.0) Eosinophils (%) (Auto) 1.1 % (0.0-7.0) Basophils (%) (Auto) 0.9 % (0.0-2.0) Neutrophils # (Auto) 4.7 10 ^3/uL (1.6-8.6) Lymphocytes # (Auto) 2.1 10 ^3/uL (0.4-5.4) Monocytes # (Auto) 0.6 10 ^3/uL (0-1.3) Eosinophils # (Auto) 0.1 10 ^3/uL (0-0.8) Basophils # (Auto) 0.1 10 ^3/uL (0-0.2) Nucleated Red Blood Cells 0.1 % Platelet Estimate Increased Hypochromasia (manual) Slight Anisocytosis (manual) Slight Microcytosis Slight Stool Occult Blood Negative (Negative) Stool Occult Blood Sample #3 (Negative) Sodium Level 142 mmol/L (136-145) Potassium Level 3.8 mmol/L (3.5-5.1) Chloride Level 108 mmol/L (98-107) Carbon Dioxide Level 24 mmol/L (20-31) Anion Gap 10 (5-15) Blood Urea Nitrogen 12 mg/dL (9-23) Creatinine 0.54 mg/dL (0.550-1.02) Glomerular Filtration Rate Calc 122 mL/min (>90) BUN/Creatinine Ratio 22.2 (10.0-20.0) Serum Glucose 100 mg/dL (74-106) Calcium Level 8.7 mg/dL (8.7-10.4) Total Bilirubin 0.9 mg/dL (0.2-1.0) Aspartate Amino Transferase (AST) 15 U/L (13-40) Alanine Aminotransferase (ALT) < 9 U/L (7-40) Alkaline Phosphatase 68 U/L (46-116) Total Protein 6.6 g/dL (5.7-8.2) Albumin 3.9 g/dL (3.2-4.8) Urine Test Negative (Negative) Other Laboratory Tests 07/25/25 05:54 07/24/25 03:02 Brief Hx & Hospital Course: 35-year-old female who denies past medical history presented to [facility] ED with acute anemia and dizziness. Patient reports that she went for a routine checkup and had lab drawn last week. Patient receive a phone call today stating that her hemoglobin is 6.4 and she is required to go to the emergency department for further evaluation and possible blood transfusion. Patient states that she experienced similar symptoms 5 years ago after having a baby and receive blood transfusion without complication. She reports having significant heavy menstrual cycles prior to this, but not bleeding from any site at this time. 07/24: Patient presenting with severe dizziness, recently had until cycle which was heavier than normal, patient does suffer with history of menorrhagia. Patient had routine blood draw and was told her blood levels were low prior to presentation. On initial eval patient is anemic hemoglobin 6.8, patient had conjunctival pallor looks pale. 1 unit blood is given in ER. Patient is O positive. We will get pelvic ultrasound and consult Gynecology. 07/25: Stool occult blood negative, no significant findings on pelvic ultrasound, gynecology has evaluated the patient and wants to do outpatient follow up. Hemoglobin stable. Stable for discharge as per plan below. Continue folic acid 1 mg daily for next 30 days, continue ferrous sulfate 325 every other day, close follow up with Gynecology, follow up 1-2 weeks with PCP to review discharge. Diagnosis: Acute blood loss anemia , requiring transfusion Severe anemia , microcytic Menorrhagia Ruled out GI bleed Thrombocytosis, likely reactive to severe anemia. Intravascular volume depletion plan: - folic acid 1 mg daily for next 30 days, -continue ferrous sulfate 325 every other day, -close follow up with Gynecology, -follow up 1-2 weeks with PCP to review discharge. Condition at Discharge: Fair Final Diagnosis/Problems List Acute blood loss anemia , requiring transfusion Severe anemia , microcytic Menorrhagia Ruled out GI bleed Thrombocytosis, likely reactive to severe anemia. Intravascular volume depletion Discharge Disposition: Home Discharge Instruct/Medications Scheduled Ferrous Sulfate (Gnp Iron), 1 TAB PO TID, (Reported) Discharge Statement: "Patient was advised to return to the ER or call 911 if any headaches, dizziness, shortness of breath, chest pain, abdominal pain, bleeding, fevers, or worsening of medical condition. Patient was counseled about treatment plan, medications, possible side effects, patientverbalized understanding. All questions were answered to the best of my ability. This discharge took greater then 30 minutes in planning, reviewing documentation, counseling the patient, and discussing with other team members." ASSESSMENT ASSESSMENT Assessment Date of Service: Jul 25, 2025 Billing Provider: GALLO BURNETTE MD Common Visit Codes: 59659-TEV/OBS DISCH DAY >30min GALLO BURNETTE MD Jul 25, 2025 15:16
[2025-07-25] MEDS ORDERED: FOLI-119 PO (16:28)
[2025-07-25] MEDS ORDERED: FER325T PO (16:28)
== END 2025-07-25 17:24 | disposition home or self-care (01) | DRG 663 ==
LOC: ER 16:20 → OVERFLOW 21:52 → TELE-CENTR 07-24 16:42
PROVIDERS: ADMIT Nurse Practitioner Family; ATTEND Nurse Practitioner Family
PROC: 30233N1 Transfusion of Nonautologous Red Blood Cells into Peripheral Vein, Percutaneous Approach (ICD-10-PCS; principal; 2025-07-23)
DX: D62 Acute posthemorrhagic anemia (principal); D75.839 Thrombocytosis, unspecified; D50.9 Iron deficiency anemia, unspecified; E86.9 Volume depletion, unspecified; N92.0 Excessive and frequent menstruation with regular cycle
CPT/HCPCS: 36415; 36430; 76830; 76856; 80048; 80053; 81025; 82270; 85025; 86850; 86870; 86900; 86901; 86922; 96374; 99291; G0378